=== PATIENT | male | born 1970 | race Asian ===

== ENCOUNTER 2018-12-06 20:20 | Emergency (ER) | payer OTHER ==
[~2018-12-06] VITALS: Ht 172.7 cm; Wt 72.6 kg
[~2018-12-06 20:20] MED LIST: AMLODIPINE BESYLATE PO; ASPIRIN325 M1 PO; ATOR20TA2 PO; CITA20TA2 PO; DIVA250T2 PO; DIVA500T2 PO; DOCU100C10 PO; DRISDOL50000 UNIT PO; ERYTOIN OPTH; FOLI1TAB26 PO; LEVE5MLUD PO; LEVO0.08 PO; LEVO0.1T6 PO; MAGNSUS68 PO; MEDR2.5T19 PO; MELATONIN3 MG PO; PRINIVIL10 MG PO; PROZAC10 MG PO; RANI150T78 PO; RISP0.25 PO; SOD CHLORIDE1 GM PO; TYLENOL325 MG PO; VITAMIN D35000 UNI6 PO
[2018-12-06 20:25] VITALS: BP 143/96; TEMP 98.1
[2018-12-06 20:47] LABS: PLATELET COUNT 174 K/uL (142-355)
[2018-12-06 20:51] LABS: POTASSIUM 3.9 mmol/L (3.6-5.2)
[2018-12-06] MEDS ORDERED: PROPRANOLOL10 MG PO (22:45)
[2018-12-06] MEDS ORDERED: BUSPIRONE10 MG PO (22:50)
== END 2018-12-06 21:48 | disposition other institution (70) ==
LOC: ED 20:20
PROVIDERS: Student in an Organized Health Care Education/Training Program
DX: F91.8 Other conduct disorders (principal); Z04.6 Encounter for general psychiatric examination, requested by authority; I10 Essential (primary) hypertension
CPT/HCPCS: 36415; 80053; 81000; 85027; 93005; 99285